=== PATIENT | male | born 1940 | race Caucasian/White ===

== ENCOUNTER 2018-04-01 21:19 | Emergency (ER) | payer OTHER ==
[~2018-04-01] VITALS: Ht 175.3 cm; Wt 70.3 kg
[2018-04-01] MEDS ORDERED: TELMISARTAN-HC1 EACH (21:36)
[2018-04-01] MEDS ORDERED: ATORVASTATIN CA40 MG (21:37)
[2018-04-01] MEDS ORDERED: FISH OIL 1,001000 M2 (21:38)
[2018-04-01] MEDS ORDERED: ASPIRIN325 (21:38)
[2018-04-01] MEDS ORDERED: TENORMIN25 MG (21:39)
[2018-04-01 21:56] LABS: ABSOLUTE BASOPHILS 0.1 thou/uL (0.0-0.2); ABSOLUTE EOSINOPHILS 0.1 thou/uL (0.0-0.7); ABSOLUTE LYMPHOCYTES 1.7 thou/uL (0.8-5.3); ABSOLUTE MONOCYTES 0.6 thou/uL (0.0-1.2); ABSOLUTE NEUTROPHILS 9.9 thou/uL (1.6-8.1); BASOPHILS 0.5 %; EOSINOPHILS 0.8 %; HEMATOCRIT 39.9 % (42.0-52.0); HEMOGLOBIN 13.6 gm/dL (14.0-18.0); LYMPHOCYTES 13.5 %; MCHC 34.1 g/dL (28.0-37.0); MCV 96.8 fL (80.0-100.0); MONOCYTES 4.6 %; MPV 7.3 fl. (7.2-11.1); NUCLEATED RBCS 0 /100WBC; PLATELET COUNT* 255 thou/uL (150-400); POLYS 80.6 %; RBC 4.13 mil/uL (4.50-6.00); RDW-CV 14.3 % (10.5-14.5); WBC 12.3 thou/uL (4.0-11.0)
[2018-04-01 22:01] LABS: ANION GAP 6 mmol/L (7-16); BUN 21 mg/dL (7-18); CALCIUM 9.7 mg/dL (8.5-10.1); CHLORIDE 101 mmol/L (98-107); CO2 32 mmol/L (21-32); CREATININE 1.4 mg/dL (0.6-1.3); GLUCOSE 113 mg/dL (70-99); POTASSIUM 3.8 mmol/L (3.5-5.1); SODIUM 139 mmol/L (136-145)
[2018-04-01 22:12] LABS: ALBUMIN 3.6 g/dL (3.4-5.0); ALKALINE PHOSPHATASE 91 U/L (46-116); LIPASE 133 U/L (73-393); MAGNESIUM 2.2 mg/dL (1.8-2.4); NT-PRO BRAIN NAT PEPTIDE 238 pg/mL (<300); SGOT 20 U/L (15-37); SGPT 16 U/L (30-65); TOTAL BILIRUBIN 0.5 mg/dL (<0.1-1.0); TOTAL PROTEIN 7.6 g/dL (6.4-8.2); TROPONIN-I LEVEL <0.06 ng/mL (<0.06)
[2018-04-02 00:43] VITALS: BP 102/50
--- NOTE | 2018-04-02 10:52 | EKG ---
[place] [address] ELECTROCARDIOGRAM REPORT Name: ANIL YANG [id number] Admission: 04/01/18 Attend Phys: Discharge: 04/02/18 Date of : 42 Report #: [id number] THIS REPORT FOR: //name// [facility] ED Test Date: 2018-04-01 Test Time: 23:52:19 Pat Name: ANIL YANG Department: Room: Gender: Clinical Esthetician: MIMI Wood : 1940 Requested By: José García Order Number: [id number] MD: Alfonso Kaiser Measurements Intervals [place] Rate: 57 P: 71 UT: 206 QRS: 72 QRSD: 95 T: 63 QT: 403 QTc: 393 Interpretive Statements Sinus bradycardia Minimal ST elevation, anterior leads Compared to ECG 05/10/2007 09:31:01 no change Electronically Signed On 04-02-2018 10:51:55 CDT by Alfonso Kaiser [email or web address] <ELECTRONICALLY SIGNED> By: Alfonso Kaiser MD, [facility] 04/02/18 1051 [id number] Alfonso Kaiser MD, FACC /EPI
--- NOTE | 2018-04-02 11:06 | EKG ---
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 04/02/18 1106 [id number] 27 Alfonso Kaiser MD, [facility] /EPI
== END 2018-04-02 00:44 | disposition home or self-care (01) ==
LOC: M.ERS 21:19
PROVIDERS: Emergency Medicine Emergency Medical Services
DX: R00.2 Palpitations (principal); I10 Essential (primary) hypertension; F17.210 Nicotine dependence, cigarettes, uncomplicated; Z95.5 Presence of coronary angioplasty implant and graft